=== PATIENT | female | born 1940 | race Caucasian/White ===

== ENCOUNTER → 2017-06-03 | Outpatient (CLI) | payer MEDICARE, BC ==
[~2017-06-03] MED LIST: CALCIUM CARBON500 M1 PO; FISH OIL 1000MG1 CAP PO; FLAXSEED OIL1 CAP PO; GLUCOSAMINE/CHONDROI; IRON325 M1 PO; MVI; NORCO 325 MG-7.1 TAB PO; PEPCID 20MG TAB20 MG PO; PERCOCET 325 MG1 TA2 PO; PREMARIN0.625 MG PO; SYNTHROID0.2 MG/TAB PO; VESICARE; VIT D; [UNRECOGNIZED DRUG - OTHER]; [UNRECOGNIZED DRUG - OTHER]; [UNRECOGNIZED DRUG - OTHER] PO
== END ==
LOC: MC.RAD 09:30
DX: Z12.31 Encounter for screening mammogram for malignant neoplasm of breast (principal)

== ENCOUNTER 2018-06-22 14:58 | Emergency (ER) | payer MEDICARE, BC ==
[~2018-06-22] VITALS: Ht 170.2 cm; Wt 83.2 kg
[2018-06-22 15:05] VITALS: BP 185/86; TEMP 98.1
[2018-06-22 16:08] LABS: BASO # 0.1 (0.0-0.2); BASO % 0.9 % (0.0-2.0); EOS # 0.2 (0.0-0.7); GRAN # 2.6 (1.4-6.5); GRAN % 46.8 % (42.2-75.2); HEMATOCRIT 40.1 % (37.0-47.0); HEMOGLOBIN 13.5 g/dl (12.5-16.0); LYMPH % 35.9 % (20.0-51.0); MEAN CELL VOLUME 85 fl (80.0-100.0); MEAN CORPUSCULAR HEMOGLOBIN 29 pg (27.0-31.0); MEAN CORPUSCULAR HGB CONC 34 g/dl (33.0-37.0); MEAN PLATELET VOLUME 9.4 fl (7.4-10.4); MONO # 0.7 (0.1-0.6); PLATELET COUNT 179 K/mm3 (130-400); RED BLOOD COUNT 4.73 M/mm3 (4.10-5.30); REDCELL DISTRIBUTION WIDTH-CV 13.1 % (11.5-14.5)
[2018-06-22 16:20] LABS: ALANINE AMINOTRANSFERASE 26 U/L (9-52); ALBUMIN 3.7 gm/dL (3.5-5.0); ALKALINE PHOSPHATASE 68 U/L (50-136); ANION GAP 9 mmol/L (7-16); AST,SGOT 23 U/L (15-37); BILIRUBIN,TOTAL 0.2 mg/dL (0.0-1.0); BLOOD UREA NITROGEN 14 mg/dL (7-17); C-REACTIVE PROTEIN 0.8 mg/dL (0.0-0.9); CALCIUM 8.9 mg/dL (8.4-10.2); CARBON DIOXIDE 28 mmol/L (22-30); CHLORIDE 104 mmol/L (98-107); GLUCOSE 88 mg/dL (74-106); LIPASE 97 U/L (23-300); POTASSIUM 3.8 mmol/L (3.4-5.0); SODIUM 141 mmol/L (137-145); TOTAL PROTEIN 6.7 gm/dL (6.4-8.2)
[2018-06-22 16:30] LABS: TROPONIN-I < 0.012 ng/mL (0.000-0.034)
[2018-06-22] MEDS ORDERED: SYNTHROID0.2 MG/TAB PO (16:44)
[2018-06-22] MEDS ORDERED: DITROPAN XL10 MG PO (16:45)
[2018-06-22] MEDS ORDERED: PREMARIN .3MG0.3 MG PO (16:45)
[2018-06-22] MEDS ORDERED: OSTEO-BI-FLEX 21 TAB PO (16:46)
[2018-06-22] MEDS ORDERED: MASON NATURAL1200 MG PO (16:46)
[2018-06-22] MEDS ORDERED: VITAMIN FLUSH-F1 CAP PO (16:46)
[2018-06-22] MEDS ORDERED: CALTRATE-600 W600 MG PO (16:47)
[2018-06-22] MEDS ORDERED: MASON NATURAL2000 IU PO (16:47)
[2018-06-22] MEDS ORDERED: MULTIVITAMIN FO1 CAP PO (16:48)
[2018-06-22] MEDS ORDERED: PROTONIX 40MG T40 MG PO (18:03)
[2018-06-22 18:20] VITALS: PULSE 70
== END 2018-06-22 18:22 | disposition home or self-care (01) ==
LOC: COL.ER 14:58
PROVIDERS: Emergency Medicine
DX: R07.89 Other chest pain (principal); K21.9 Gastro-esophageal reflux disease without esophagitis; M19.90 Unspecified osteoarthritis, unspecified site; E03.9 Hypothyroidism, unspecified; Z90.710 Acquired absence of both cervix and uterus

== ENCOUNTER → 2019-10-14 | Outpatient (CLI) | payer MEDICARE, BC ==
[~2019-10-14] MED LIST changes: +CALTRATE-600 W600 MG PO; +DITROPAN XL10 MG PO; +MASON NATURAL1200 MG PO; +MASON NATURAL2000 IU PO; +MULTIVITAMIN FO1 CAP PO; +OSTEO-BI-FLEX 21 TAB PO; +PREMARIN .3MG0.3 MG PO; +PROTONIX 40MG T40 MG PO; +VITAMIN FLUSH-F1 CAP PO
== END ==
LOC: MC.RAD 09:14
DX: Z12.31 Encounter for screening mammogram for malignant neoplasm of breast (principal)

== ENCOUNTER 2020-05-11 10:00 | Outpatient (RCR) | payer MEDICARE, BC | END 2020-06-28 | disposition home or self-care (01) | LOC: WSPT | DX: M70.62 Trochanteric bursitis, left hip (principal); M47.819 Spondylosis without myelopathy or radiculopathy, site unspecified ==

== ENCOUNTER 2020-10-25 07:15 | Outpatient (CLI) | payer MEDICARE, BC ==
[~2020-10-25] VITALS: Ht 170.2 cm; Wt 77.8 kg
[2020-10-25] MEDS ORDERED: TOPROL XL 25MG25 MG PO (08:27)
[2020-10-25] MEDS ORDERED: BIOTIN2500 MCG PO (08:28)
[2020-10-25] MEDS ORDERED: MELATIN 3 MG-11 TAB PO (08:29)
[2020-10-25 08:40] VITALS: BP 131/73; PULSE 72; TEMP 97.8
[2020-10-25 10:30] VITALS: BP 128/70; PULSE 68; TEMP 97.8
--- NOTE | 2020-10-25 10:45 | NUR ---
Discharge instructions given. Transferred to private car by oswald
== END 2020-10-25 10:45 | disposition home or self-care (01) ==
LOC: COL.CAR 07:15
DX: I49.3 Ventricular premature depolarization (principal); E78.2 Mixed hyperlipidemia; E03.9 Hypothyroidism, unspecified; Z86.718 Personal history of other venous thrombosis and embolism; K21.9 Gastro-esophageal reflux disease without esophagitis; Z90.710 Acquired absence of both cervix and uterus; Z90.721 Acquired absence of ovaries, unilateral; M19.90 Unspecified osteoarthritis, unspecified site; Z96.643 Presence of artificial hip joint, bilateral; Z88.8 Allergy status to other drugs, medicaments and biological substances; Z88.2 Allergy status to sulfonamides; Z88.1 Allergy status to other antibiotic agents; Z88.5 Allergy status to narcotic agent
CPT/HCPCS: 27124; C1764